=== PATIENT | male | born 1995 | race Caucasian/White ===

== ENCOUNTER 2019-11-14 11:49 | Observation (INO) ==
[2019-11-14] MEDS ORDERED: ONDANSETRON INJ 2 MG/ML 2 ML VIAL IV STA (12:05)
[2019-11-14] MEDS ORDERED: IOVERSOL 100ml IV PRN (12:14)
[2019-11-14] MEDS ORDERED: SODIUM CHLORIDE 0.9% 1000ML 1,000 ML IV SCH (12:15)
[2019-11-14] MEDS: fentaNYL citrate 100 MCG/2 ML VIAL IV PRN ×3 (12:29→16:41)
[2019-11-14 12:30] LABS: Basophils # (auto) 0.01 K/uL (0-0.2); Basophils % (auto) 0.1 %; Eosinophils # (auto) 0.08 K/uL (0-0.5); Eosinophils % (auto) 0.9 %; Hematocrit (blood only) 43.8 % (42-52); Hemoglobin 15.2 g/dL (14.0-18.0); Immature Granulocytes # (auto) 0.02 K/uL (0.00-0.02); Immature Granulocytes % (auto) 0.2 %; Lymphocytes # (auto) 1.14 K/uL (1.2-3.4); Lymphocytes % (auto) 12.7 %; Mean Corpuscular Hemoglobin 29.2 pg (25-34); Mean Corpuscular Hgb Conc 34.7 g/dL (32-36); Mean Corpuscular Volume 84.2 fL (80-100); Mean Platelet Volume 9.8 fL (7.4-10.4); Monocytes # (auto) 1.23 K/uL (0.11-0.59); Monocytes % (auto) 13.7 %; Neutrophils % (auto) 72.4 %; Platelet Count 171 K/uL (130-400); RDW Coefficient of Variation 13.2 % (11.5-14.5); White Blood Count 8.98 K/uL (4.8-10.8)
[2019-11-14 12:40] LABS: iSTAT Creatinine 0.9 mg/dl (0.6-1.3); iSTAT Hemoglobin 15.6 g/dl (14.0-18.0); iSTAT Ionized Calcium 1.24 mmol/l (1.12-1.32); iSTAT Potassium 4.4 mmol/L (3.3-5.0)
--- NOTE | 2019-11-14 12:41 | Emergency Department Note ---
Impression & Plan Acute appendicitis, Abdominal pain ED Provider Note NAME: CLUADIA Weiss [id number] MAURILIO AGE: 24 SEX: M : 1995 ARRIVES VIA: Walk-In INFORMANT: Patient, ED PROVIDER(S): Raffi Moreno DO CHIEF COMPLAINT: Abdominal pain HPI: The patient is a 24-year-old male who presented to the emergency department for an evaluation of abdominal pain. The patient has had abdominal pain which began last evening. He states he awoke at approximately 03 100 this morning with worsening of the pain. [facility] with Toradol. They felt his condition could be consistent with appendicitis so the patient was sent to the emergency department for further evaluation. The patient states he is had pain which is been ongoing. He states it does not radiate to his back or to his testicle. He does complain of nausea but has had no vomiting or diarrhea. He has had no fever. The patient states that he has not had similar symptoms in the past. The patient denies having any chest pain or difficulty breathing. ROS: See above HPI for pertinent positives & negatives. A total of 10 systems reviewed and were otherwise negative. PAST MEDICAL HISTORY: See Below PAST SURGICAL HISTORY: See Below FAMILY HISTORY: See Below SOCIAL HISTORY: See Below HOME MEDICATIONS: See Below ALLERGIES: See Below VITALS: See Below PHYSICAL EXAMINATION: GENERAL: Patient is awake alert in no acute distress patient is resting comfortably and showing no signs of anxiety EYES: The conjunctivae are clear. The pupils are round and reactive. EARS, NOSE, MOUTH AND THROAT: The nose is without any evidence of any deformity. Mucous membranes are moist. Tongue is midline. NECK: The neck is nontender and supple. RESPIRATORY: Normal respiratory effort is noted there is no evidence of wheezing rhonchi or rales CARDIOVASCULAR: Regular rate and rhythm noted there no murmurs rubs or gallops normal S1 normal S2. GASTROINTESTINAL: The abdomen is nondistended and soft. There is right lower quadrant tenderness to palpation but no guarding or rigidity. MUSCULOSKELETAL/EXTREMITIES: There is no evidence of gross deformity full range of motion is noted in the hips and shoulders. SKIN: There is no obvious evidence of any rash. There are no petechiae, pallor or cyanosis noted. NEUROLOGIC: Patient is awake alert and oriented x3. MEDICAL DECISION MAKING: The patient is a 24-year-old male who presented to the emergency department for an evaluation of right lower quadrant abdominal pain. The patient was seen at the community [facility] and given a dose of Toradol. The patient presented to the emergency department for further work-up of possible appendicitis. I discussed the patient's laboratory and radiographic studies with him. His CAT scan appears to be consistent with early appendicitis. The patient was treated with IV fluids and IV pain medication. He was feeling much better on subsequent reevaluation. The on-call general surgeon was consulted. The patient is pending evaluation by the general surgeon. Triage Nursing notes reviewed. Prior medical records reviewed Vital Signs: reviewed and remarkable for elevated blood pressure Differential diagnosis: Etiologies such as appendicitis, diverticulitis, obstruction, inflammatory bowel disease, renal colic, PUD, biliary pathology, pancreatitis, mesenteric ischemia, aortic pathology, infections, genitourinary, UTI, perforated viscus, as well as others were entertained. ER treatment provided: See below Diagnostics interpreted by me: ECG: none Cardiac Monitoring: An order was placed for continuous cardiac monitoring. The monitor shows a rate of 85 with sinus rhythm. Laboratory studies: As stated above and show below. Imaging studies: See below Consultation(s): 1430: On-call general surgery was consulted Past Med/Surg History Medical History (Updated 11/14/19 @ 14:32 by Raffi Moreno DO) History of varicocele Social History Feels Safe at Home: Yes Smoking Status: Never smoker Allergies Allergies Allergy/AdvReac Type Severity Reaction Status Date / Time No Known Allergies Allergy Unverified 11/14/19 12:37 Home Meds Home Medications Medication Instructions Recorded Confirmed No Known Home Medications 11/14/19 11/14/19 Results & Data (ED) Vital Signs Vital Signs - 24 hr 11/14/19 11:52 11/14/19 13:08 Temperature 37.2 C Temperature Source Oral Pulse Rate 84 Pulse Rate [Right Finger] 80 Pulse Rhythm [Right Finger] Regular Pulse Strength [Right Finger] Normal Respiratory Rate 18 20 Respiratory Effort / Characteristics Non-Labored Spontaneous Non-Labored Respiratory Depth Normal Normal Respiratory Pattern Regular Agonal Blood Pressure 126/72 Blood Pressure [Right Arm] 143/78 H Blood Pressure Mean 90 Blood Pressure Mean [Right Arm] 99 Blood Pressure Position Sitting Pulse Oximetry 97 99 Oxygen Delivery Method Room Air Nasal Cannula Sepsis Recent Fever Within 48 Hours No Sepsis New/Unexplained Change in Mental Status No Sepsis Action Taken by Nursing No Action Required Home Medications Current Medication List: was personally reviewed by me Laboratory Data Attestation: I reviewed the patient's lab results. Result diagrams: 11/14/19 12:22 11/14/19 12:22 Lab Results 11/14/19 11/14/19 11/14/19 Range/Units 12:22 12:22 12:27 WBC 8.98 (4.8-10.8) K/uL RBC 5.20 (4.7-6.1) M/uL Hgb 15.2 (14.0-18.0) g/dL POC Hgb 15.6 (14.0-18.0) g/dl Hct 43.8 (42-52) % POC Hct 46 (42-52) % MCV 84.2 (80-100) fL MCH 29.2 (25-34) pg MCHC 34.7 (32-36) g/dL RDW Std Deviation 40.0 (36.4-46.3) fL RDW Coeff of Deborah 13.2 (11.5-14.5) % Plt Count 171 (130-400) K/uL MPV 9.8 (7.4-10.4) fL Immature Gran % (Auto) 0.2 % Neut % (Auto) 72.4 % Lymph % (Auto) 12.7 % [place] % (Auto) 13.7 % Eos % (Auto) 0.9 % Baso % (Auto) 0.1 % Immature Gran # (Auto) 0.02 (0.00-0.02) K/uL Neut # (Auto) 6.50 (1.4-6.5) K/uL Lymph # (Auto) 1.14 L (1.2-3.4) K/uL [place] # (Auto) 1.23 H (0.11-0.59) K/uL Eos # (Auto) 0.08 (0-0.5) K/uL Baso # (Auto) 0.01 (0-0.2) K/uL POC Sodium 137 (135-144) mmol/L Sodium 136 (136-145) mmol/L POC Potassium 4.4 (3.3-5.0) mmol/L Potassium 4.4 (3.5-5.1) mmol/L POC Chloride 101 (101-112) mmol/L Chloride 104 (98-107) mmol/L Carbon Dioxide 30 (21-32) mmol/L POC Total CO2 26 (24-31) mmol/L Anion Gap 2.0 L (3-11) POC Anion Gap 14.0 L (16-25) mmol/L POC BUN 11 (7-18) mg/dl BUN 11 (7-18) mg/dl Creatinine 0.95 (0.6-1.4) mg/dl POC Creatinine 0.9 (0.6-1.3) mg/dl Est Cr Clr Drug Dosing 117.0 ml/min Est GFR ( Amer) 130.2 Est GFR (Non-Af Amer) 112.4 BUN/Creatinine Ratio 11.7 (10-20) Glucose 93 (70-99) mg/dl POC Glucose (other) 95 (70-99) mg/dl Calcium 9.1 (8.5-10.1) mg/dl POC Ioniz Calcium Mike 1.24 (1.12-1.32) mmol/l Total Bilirubin 1.1 H (0.2-1) mg/dl AST 17 (15-37) U/L ALT 43 (12-78) U/L Alkaline Phosphatase 74 (45-117) U/L Total Protein 7.4 (6.4-8.2) gm/dl Albumin 4.1 (3.4-5.0) gm/dl Globulin 3.3 (2.5-4.0) gm/dl Albumin/Globulin Ratio 1.2 (0.9-2) Lipase 58 L (73-393) U/L Administered Medications Fentanyl Citrate (Fentanyl Citrate) 50 mcg IV Q15M PRN PRN Reason: Pain Stop: 11/28/19 12:04 Last Admin: 11/14/19 14:26 Dose: 50 mcg Documented by: [id number] Admin: 11/14/19 12:29 Dose: 50 mcg Documented by: [id number] Ioversol (Optiray 320 100ml) 93 ml IV ONCE PRN PRN Reason: Interaction Checking Stop: 11/18/19 12:13 Last Admin: 11/14/19 12:14 Dose: 93 ml Documented by: [id number] Discontinued Medications Sodium Chloride (Nss 1000ml) 1,000 mls @ 999 mls/hr IV .Q1H1M VALERIE Stop: 11/14/19 13:15 Last Infusion: 11/14/19 13:52 Dose: 0 mls/hr Documented by: [id number] Admin: 11/14/19 12:29 Dose: 999 mls/hr Documented by: [id number] Ondansetron HCl (Zofran) 4 mg IV NOW STA Stop: 11/14/19 12:06 Last Admin: 11/14/19 12:29 Dose: 4 mg Documented by: [id number] Imaging Data Radiologist's Impression: CT SCAN OF THE ABDOMEN AND PELVIS WITH IV CONTRAST CLINICAL HISTORY: Right lower quadrant abdominal pain. COMPARISON STUDY: No priors. TECHNIQUE: Following the IV administration of 93 cc of Optiray 320, CT scan of the abdomen and pelvis is performed from the lung bases to the proximal femora. Images are reviewed in the axial, sagittal, and coronal planes. IV contrast was administered without complication. A dose lowering technique was utilized adhering to the principles of ALARA. CT DOSE: 332.68 mGy.cm FINDINGS: Lung bases: The heart is normal in size and without pericardial effusion. The lung bases are clear. Liver: The contrast-enhanced liver is normal in size, contour, and attenuation. There is no intrahepatic biliary ductal dilatation. The hepatic veins and portal veins are patent. Gallbladder: Unremarkable. Spleen: Normal in size and attenuation. Pancreas: Unremarkable. Adrenal glands: Unremarkable. Kidneys: The contrast enhanced kidneys are normal in size and without hydronephrosis. The kidneys enhance symmetrically. Abdominal vasculature: The abdominal aorta is normal in course and caliber. Bowel: There is no bowel obstruction. Moderate fecal retention is noted in the colon. The appendix is mildly distended and fluid-filled measuring up to 10 mm diameter as seen on image #313. Infiltration is identified around the base of the appendix, and findings are concerning for mild acute appendicitis. Peritoneum: There is no intraperitoneal free air or abdominal ascites. There is a fat-containing umbilical hernia. Lymphadenopathy: None. Pelvic viscera: The bladder, prostate, and seminal vesicles are normal as visualized. Skeletal structures: No lytic or blastic lesions are seen. IMPRESSION: 1. Findings are suspicious for mild acute appendicitis. Surgical consultation is advised. 2. There is no evidence of abscess or perforation. 3. Moderate constipation. ACT 112: Negative or not required by law. Electronically signed by: Anil Summers M.D. 11/14/2019 1:16 PM Dictated: 11/14/19 1311 Transcribed: 11/14/19 1311 Blood Pressure Blood Pressure Findings: Elevated blood pressure Blood Pressure Disposition: elevated BP felt to be situational Discharge Plan Visit Data Chief Complaint: Abdominal Pain Stated Complaint: ABD PAIN ED Provider: Raffi Moreno Discharge Problem: Acute appendicitis, Abdominal pain Patient Disposition: Being Evaluated by Surgeon Condition: Good Forms Stand Alone Forms: [employer] Prescriptions Prescriptions: No Action No Known Home Medications RF: 0 Referrals Referrals: Benton OWENS [Primary Care Provider] -
[2019-11-14 12:48] LABS: Albumin Level 4.1 gm/dl (3.4-5.0); BUN Creatinine Ratio 11.7 (10-20); Calcium 9.1 mg/dl (8.5-10.1); Est GFR (African American) 130.2; Est GFR (Non-African American) 112.4; Potassium 4.4 mmol/L (3.5-5.1)
[2019-11-14 12:50] LABS: Albumin Globulin Ratio 1.2 (0.9-2); Bilirubin,Total 1.1 mg/dl (0.2-1); Globulin 3.3 gm/dl (2.5-4.0); Total Protein 7.4 gm/dl (6.4-8.2)
--- NOTE | 2019-11-14 13:18 | CT Scan Report ---
CT SCAN OF THE ABDOMEN AND PELVIS WITH IV CONTRAST CLINICAL HISTORY: Right lower quadrant abdominal pain. COMPARISON STUDY: No priors. TECHNIQUE: Following the IV administration of 93 cc of Optiray 320, CT scan of the abdomen and pelvi s is performed from the lung bases to the proximal femora. Images are reviewed in the axial, sagittal , and coronal planes. IV contrast was administered without complication. A dose lowering technique wa s utilized adhering to the principles of ALARA. CT DOSE: 332.68 mGy.cm FINDINGS: Lung bases: The heart is normal in size and without pericardial effusion. The lung bases are clear. Liver: The contrast-enhanced liver is normal in size, contour, and attenuation. There is no intrahepa tic biliary ductal dilatation. The hepatic veins and portal veins are patent. Gallbladder: Unremarkable. Spleen: Normal in size and attenuation. Pancreas: Unremarkable. Adrenal glands: Unremarkable. Kidneys: The contrast enhanced kidneys are normal in size and without hydronephrosis. The kidneys enh ance symmetrically. Abdominal vasculature: The abdominal aorta is normal in course and caliber. Bowel: There is no bowel obstruction. Moderate fecal retention is noted in the colon. The appendix is mildly distended and fluid-filled measuring up to 10 mm diameter as seen on image #313. Infiltration is identified around the base of the appendix, and findings are concerning for mild acute appendicit is. Peritoneum: There is no intraperitoneal free air or abdominal ascites. There is a fat-containing umbi lical hernia. Lymphadenopathy: None. Pelvic viscera: The bladder, prostate, and seminal vesicles are normal as visualized. Skeletal structures: No lytic or blastic lesions are seen. IMPRESSION: 1. Findings are suspicious for mild acute appendicitis. Surgical consultation is advised. 2. There is no evidence of abscess or perforation. 3. Moderate constipation. ACT 112: Negative or not required by law. Electronically signed by: Anil Summers M.D. 11/14/2019 1:16 PM
[2019-11-14 14:43] LABS: Appearance Urine Clear (Clear); Bilirubin Urine Negative (Negative); Blood Urine Negative (Negative); Color Urine Yellow; Glucose Urine UA Negative (Negative); Ketones Urine Negative (Negative); Leukocyte Esterase Urine Negative (Negative); Nitrite Urine Negative (Negative); Protein Urine Negative (Negative); Specific Gravity Urine > 1.045 (1.000-1.030); Urobilinogen Urine Negative (Negative)
--- NOTE | 2019-11-14 15:53 | Surgery Consultation ---
Date of Consultation November 14, 2019 Assessment & Plan (1) Acute appendicitis: pt is a 24 year-old male who presents to ER with acute abdominal pain, IMP: acute appendicitis, Plan, I recommend to do laparoscopic appendectomy, possible open D/W benefits, risks and alternatives of the surgery, the risks - infection, bleeding, abscess, injury bowel, pt understood, he agrees with the surgery, I answered all questions, pre-op antibiotic History of Present Illness History of Present Illness CHIEF COMPLAINT: Abdominal pain HPI: The patient is a 24-year-old male who presented to the emergency department for an evaluation of abdominal pain. The patient has had abdominal pain which began last evening. He states he awoke at approximately 03 100 this morning with worsening of the pain. He was seen at the [facility] and treated with Toradol. They felt his condition could be consistent with appendicitis so the patient was sent to the emergency department for further evaluation. The patient states he is had pain which is been ongoing. He states it does not radiate to his back or to his testicle. He does complain of nausea but has had no vomiting or diarrhea. He has had no fever. The patient states that he has not had similar symptoms in the past. The patient denies having any chest pain or difficulty breathing. I ( Yamila Granados MD ) got a call for consult acute appendicitis, I reviewed pt's H/P, Labs, and CT scan with pt, ROS: See above HPI for pertinent positives & negatives. A total of 10 systems reviewed and were otherwise negative. PAST MEDICAL HISTORY: See Below PAST SURGICAL HISTORY: See Below FAMILY HISTORY: See Below SOCIAL HISTORY: See Below HOME MEDICATIONS: See Below ALLERGIES: See Below Allergies Allergy/AdvReac Type Severity Reaction Status Date / Time No Known Allergies Allergy Unverified 11/14/19 12:37 Home Medications Home Medications Medication Instructions Recorded Confirmed Type No Known Home Medications 11/14/19 11/14/19 History Patient History Medical History (Updated 11/14/19 @ 14:32 by Raffi Moreno DO) History of varicocele Social History Feels Safe at Home: Yes Smoking Status: Never smoker Review of Systems Constitutional: as per Subjective / HPI Eyes: as per Subjective / HPI Ear, Nose, Mouth, Throat: as per Subjective / HPI Respiratory: as per Subjective / HPI Cardiovascular: as per Subjective / HPI Gastrointestinal: as per Subjective / HPI Genitourinary: + as per Subjective / HPI Musculoskeletal: as per Subjective / HPI Integumentary: as per Subjective / HPI Neurologic: as per Subjective / HPI Psychiatric: as per Subjective / HPI Endocrine: as per Subjective / HPI Hematologic / Lymphatic: as per Subjective / HPI Allergy / Immunological: as per Subjective / HPI Physical Exam Constitutional: WD/WN, vitals as above well developed and well nourished Eyes: PERRL, conjunctivae normal, anicteric sclerae ENMT: external ear and nose normal, oropharynx normal Neck: trachea midline, no thyromegaly Respiratory: normal respiratory effort, lungs clear to auscultation Cardiovascular: RRR, no murmur, no edema Rate/Rhythm: regular rate and regular rhythm Gastrointestinal (Abdomen): Percussion/Palpation: + abdomen tender and abdomen soft tendeness T RLQ, no rebound pain, BS + Musculoskeletal: no cyanosis or clubbing, extremities motor strength 5/5 Skin: no rashes, warm and dry Neurologic: patellar DTR's 2+ bilat, sensation intact Psychiatric: Orientation: alert and oriented x 3 Results & Data Vital Signs (Past 12 Hours) Vital Signs Temp Pulse Pulse Resp BP BP Pulse Ox 11/14/19 14:32 79 20 139/80 95 11/14/19 13:08 80 20 143/78 H 99 11/14/19 11:52 37.2 C 84 18 126/72 97 Laboratory Results Abnormal lab results 11/14/19 11/14/19 11/14/19 Range/Units 12:22 12:22 12:27 Lymph # (Auto) 1.14 L (1.2-3.4) K/uL [place] # (Auto) 1.23 H (0.11-0.59) K/uL Anion Gap 2.0 L (3-11) POC Anion Gap 14.0 L (16-25) mmol/L Total Bilirubin 1.1 H (0.2-1) mg/dl Lipase 58 L (73-393) U/L Ur Specific Onset (1.000-1.030) 11/14/19 Range/Units 14:09 Lymph # (Auto) (1.2-3.4) K/uL [place] # (Auto) (0.11-0.59) K/uL Anion Gap (3-11) POC Anion Gap (16-25) mmol/L Total Bilirubin (0.2-1) mg/dl Lipase (73-393) U/L Ur Specific Onset > 1.045 H (1.000-1.030) Diagnostic Findings CT SCAN OF THE ABDOMEN AND PELVIS WITH IV CONTRAST CLINICAL HISTORY: Right lower quadrant abdominal pain. COMPARISON STUDY: No priors. TECHNIQUE: Following the IV administration of 93 cc of Optiray 320, CT scan of the abdomen and pelvis is performed from the lung bases to the proximal femora. Images are reviewed in the axial, sagittal, and coronal planes. IV contrast was administered without complication. A dose lowering technique was utilized adhering to the principles of ALARA. CT DOSE: 332.68 mGy.cm FINDINGS: Lung bases: The heart is normal in size and without pericardial effusion. The lung bases are clear. Liver: The contrast-enhanced liver is normal in size, contour, and attenuation. There is no intrahepatic biliary ductal dilatation. The hepatic veins and portal veins are patent. Gallbladder: Unremarkable. Spleen: Normal in size and attenuation. Pancreas: Unremarkable. Adrenal glands: Unremarkable. Kidneys: The contrast enhanced kidneys are normal in size and without hydronephrosis. The kidneys enhance symmetrically. Abdominal vasculature: The abdominal aorta is normal in course and caliber. Bowel: There is no bowel obstruction. Moderate fecal retention is noted in the colon. The appendix is mildly distended and fluid-filled measuring up to 10 mm diameter as seen on image #313. Infiltration is identified around the base of the appendix, and findings are concerning for mild acute appendicitis. Peritoneum: There is no intraperitoneal free air or abdominal ascites. There is a fat-containing umbilical hernia. Lymphadenopathy: None. Pelvic viscera: The bladder, prostate, and seminal vesicles are normal as visualized. Skeletal structures: No lytic or blastic lesions are seen. IMPRESSION: 1. Findings are suspicious for mild acute appendicitis. Surgical consultation is advised. 2. There is no evidence of abscess or perforation. 3. Moderate constipation. (1) Acute appendicitis Acute appendicitis type: with localized peritonitis Appendicitis abscess presence: without abscess Appendicitis gangrene presence: unspecified whether gangrene present Appendicitis perforation presence: without perforation Qualified Code(s): K35.30 - Acute appendicitis with localized peritonitis, without perforation or gangrene
[2019-11-14] MEDS ORDERED: cefOXitin 2,000 MG/60 ML BAG IV STA (15:56)
--- NOTE | 2019-11-14 15:56 | History & Physical Bridge Note ---
Date of Service November 14, 2019 History & Physical Bridge Note I have examined the patient, reviewed the History & Physical and in the interval since the performance of the History & Physical I have noted the following changes of clinical significance: no changes noted
[2019-11-14] MEDS ORDERED: BACITRACIN OINT 15 GM TUBE ONE (17:56)
[2019-11-14] MEDS ORDERED: LIDOCAINE HCL 1% 20 ML VIAL ONE (17:57)
[2019-11-14] MEDS ORDERED: BUPIVACAINE 0.5 % 5 MG/1 ML MPF 30ML VIAL ONE (17:57)
[2019-11-14] MEDS ORDERED: fentaNYL citrate 100 MCG/2 ML VIAL ONE ×2 (17:58→18:56)
[2019-11-14] MEDS ORDERED: MIDAZOLAM HCL 1 MG/ML 2ML VIAL ONE (17:58)
[2019-11-14] MEDS ORDERED: ROCURONIUM BROMIDE 10 MG/ML 5 ML VIAL ONE ×2 (18:02→18:56)
[2019-11-14] MEDS ORDERED: ATROPINE SULFATE 0.1 MG/ML 10ML SYR IV PRN (18:13)
[2019-11-14] MEDS ORDERED: PROMETHAZINE HCL 12.5 MG in SODIUM CHLORIDE 0.9% 50 ML IV PRN (18:13)
[2019-11-14] MEDS ORDERED: ONDANSETRON INJ 2 MG/ML 2 ML VIAL IV PRN ×2 (18:13→19:22)
[2019-11-14] MEDS ORDERED: KETOROLAC 30 MG/ML VIAL IV PRN (18:13)
--- NOTE | 2019-11-14 18:13 | Anesthesiology Consultation ---
Date of Service November 14, 2019 Assessment & Plan (1) Encounter for pre-operative examination: Chart Review Chart Review: Acceptable Risk for Surgery (Prepping COVID testing pending) History Surgery Operation Date: 11/14/19 17:00 Proposed Procedures p Laparoscopic Appendectomy - Yamila Granados MD Height/Weight Height: 5 ft 8 in Weight: 81.5 kg Allergies Allergy/AdvReac Type Severity Reaction Status Date / Time No Known Allergies Allergy Unverified 11/14/19 12:37 Medications Home Medications Medication Instructions Recorded Confirmed Last Taken No Known Home Medications 11/14/19 11/14/19 Unknown Active Medications Generic Name Dose Route Start Last Admin Trade Name Freq PRN Reason Stop Dose Admin Fentanyl Citrate 50 mcg 11/14/19 12:05 11/14/19 16:41 Fentanyl Citrate IV 11/28/19 12:04 50 mcg Q15M PRN Administration Pain Ioversol 93 ml 11/14/19 12:14 11/14/19 12:14 Optiray 320 100ml IV 11/18/19 12:13 93 ml ONCE PRN Administration Interaction Checking NPO Date Last Intake of Fluids: 11/14/19 Time Last Intake of Fluids: 07:00 Date Last Intake of Solids: 11/13/19 Time Last Intake of Solids: 21:00 Past Medical History Medical History History of varicocele Social History Smoking Status: Never smoker Physical Exam Vital Signs Last Vital Signs Temp 37.2 C 11/14/19 11:52 Pulse 82 11/14/19 16:41 Resp 15 11/14/19 16:41 BP 130/58 L 11/14/19 16:41 Pulse Ox 96 11/14/19 16:41 Testing Laboratory Results 11/14/19 12:22 11/14/19 12:22 Urine Color Yellow 11/14/19 14:09 Urine Appearance Clear (Clear) 11/14/19 14:09 Urine pH 7.0 (4.5-7.5) 11/14/19 14:09 Ur Specific [place] > 1.045 (1.000-1.030) H 11/14/19 14:09 Urine Protein Negative (Negative) 11/14/19 14:09 Urine Glucose (UA) Negative (Negative) 11/14/19 14:09 Urine Ketones Negative (Negative) 11/14/19 14:09 Urine Nitrite Negative (Negative) 11/14/19 14:09 Ur Leukocyte Esterase Negative (Negative) 11/14/19 14:09 11/14/19 12:27 POC Glucose (other) 95
[2019-11-14] MEDS ORDERED: PROPOFOL IV EMULSION 10 MG/ML 20 ML VIAL IV ONE (18:56)
[2019-11-14] MEDS ORDERED: LIDOCAINE HCL 2% 2 ML VIAL/AMP(20MG/ML) INFIL ONE (18:56)
[2019-11-14] MEDS ORDERED: NEOSTIGMINE METHYLSULFATE 5 MG/5 ML SYR ONE (19:14)
[2019-11-14] MEDS ORDERED: GLYCOPYRROLATE 0.2 MG/ML VIAL ONE (19:14)
[2019-11-14] MEDS ORDERED: ONDANSETRON INJ 2 MG/ML 2 ML VIAL ONE (19:14)
--- NOTE | 2019-11-14 19:20 | Post Operative Brief Note ---
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
[2019-11-14] MEDS ORDERED: HYDROmorphone INJ 1 MG/ML SYRINGE ONE (19:48)
[2019-11-14] MEDS ORDERED: KETOROLAC 30 MG/ML VIAL ONE (19:48)
[2019-11-14] MEDS: HYDROmorphone INJ 1 MG/ML SYRINGE IV PRN ×5 (19:50→22:01)
[2019-11-14] MEDS: LACTATED RINGER'S 1,000 ML IV SCH (21:18)
--- NOTE | 2019-11-14 23:14 | Operative Report (OR) ---
DATE OF OPERATION: 11/14/2019 PREOPERATIVE DIAGNOSIS: Acute appendicitis. POSTOPERATIVE DIAGNOSIS: Acute appendicitis. PROCEDURE: Laparoscopic appendectomy. SURGEON: Yamila Granados MD. ANESTHESIA: General. ESTIMATED BLOOD LOSS: About 5 mL. FINDINGS: Acute appendicitis. COMPLICATIONS: None. INDICATIONS FOR THE PROCEDURE: This is a 24-year-old gentleman who presented to ED with acute abdominal pain and the patient had a CT scan diagnosis of acute appendicitis. I recommended to do laparoscopic appendectomy. I did possible open. I did talk to the patient about the benefits, risks, and alternate procedures. I indicated the risks may include but not limited such as bleeding, infection, abscess, injury to the bowel; patient understands. He signed informed consent and I answered all questions. DETAILS OF PROCEDURE: We brought in the patient to the OR and put the patient in the supine position. The patient received SCDs on bilateral legs to prevent DVT. Also, the patient received 2 g cefoxitin IV for prophylactic antibiotic. The patient received general anesthesia without difficulties. Abdomen was prepped and draped in routine sterile fashion. After timeout, I injected the local anesthesia just above the umbilicus. Then I made a small incision just above umbilicus, opened fascia and opened peritoneum under direct vision, put a Krista trocar in, connected to CO2 to create pneumoperitoneum. Flow rate at 6 liter per minute, pressure not more than 14 mmHg. Once we got a nice pneumoperitoneum, we put a camera in, looked around the abdomen, showed normal finding on the small bowel and large bowel. However, appendix was enlarged, inflammation, confirmed diagnosis of acute appendicitis. Then we put another two 5 mm trocars on the left lower quadrant where we mobilized the appendix and used the harmonic to take down appendiceal, rechecked, no active bleeding. Then I used a 45 mm Endo-ANGIE staple for transection on the base of the appendix, rechecked the staple line, intact. No leak, no active bleeding. Then we removed the appendix through the catch bag. Then we reinserted Krista trocar in, connected to CO2 to create pneumoperitoneum. Again looked around the abdomen, no active bleeding, no leak. Then we removed all trocar under direct vision. No active bleeding from the trocar sites. Pneumoperitoneum was released. Then I closed the umbilical incision, fascial layer by using 0 Vicryl [id number] x2, closed subcutaneous layer by using 2-0 Vicryl interruptedly, closed skin by using 4-0 Vicryl continuous running, closed another two 5 mm trocar sites skin only by using 4-0 Vicryl and we put the dressing on. The patient tolerated the procedure well. All instrument, needle and sponge count were correct x2 at the end of the case. The specimen sent to pathology. The patient transferred to recovery room in stable condition. I attest to the content of the Intraoperative Record and any orders documented therein. Any exception s are noted below.
[2019-11-15] MEDS: HYDROmorphone INJ 1 MG/ML SYRINGE IV PRN ×2 (02:16→06:25)
[2019-11-15] MEDS: LACTATED RINGER'S 1,000 ML IV SCH (05:47)
[2019-11-15 07:13] LABS: Basophils # (auto) 0.01 K/uL (0-0.2); Basophils % (auto) 0.2 %; Eosinophils # (auto) 0.07 K/uL (0-0.5); Eosinophils % (auto) 1.1 %; Hemoglobin 13.4 g/dL (14.0-18.0); Lymphocytes # (auto) 1.56 K/uL (1.2-3.4); Lymphocytes % (auto) 24.6 %; Mean Corpuscular Hemoglobin 29.7 pg (25-34); Mean Corpuscular Hgb Conc 34.4 g/dL (32-36); Mean Corpuscular Volume 86.5 fL (80-100); Mean Platelet Volume 9.7 fL (7.4-10.4); Monocytes # (auto) 1.02 K/uL (0.11-0.59); Monocytes % (auto) 16.1 %; Neutrophils # (auto) 3.68 K/uL (1.4-6.5); Platelet Count 154 K/uL (130-400); RDW Coefficient of Variation 13.4 % (11.5-14.5); RDW Standard Deviation 42.8 fL (36.4-46.3); Red Blood Count 4.51 M/uL (4.7-6.1); White Blood Count 6.34 K/uL (4.8-10.8)
[2019-11-15] MEDS: OXYCODONE/ACETAMINOPHEN 5mg/325mg TAB PO PRN ×2 (08:12→12:39)
--- NOTE | 2019-11-15 17:37 | Discharge Summary (DS) ---
ADMITTING DIAGNOSIS: Acute appendicitis. DISCHARGE DIAGNOSIS: Acute appendicitis. OPERATION: Laparoscopic appendectomy. SURGEON: Yamila Granados MD. DETAILS OF DISCHARGE SUMMARY: This is a 24-year-old gentleman who presented to ED with acute abdominal pain. The patient had a CT scan diagnosis of acute appendicitis. We took the patient to the OR. We did a laparoscopic appendectomy. The patient tolerated the procedure well on 11/14/2019 and later on patient transferred to regular floor. The patient is doing fine. He tolerated a diet, no nausea, no vomiting, good control of pain. PHYSICAL EXAMINATION: VITAL SIGNS: Temperature is 36.7, heart rate is 64, respiratory rate 16, blood pressure 119/68, O2 saturation 97% on room air. GENERAL: The patient is alert, awake, oriented x3. HEENT: With normal limitation. NEUROLOGIC: Intact. NECK: No JVD. CHEST: Bilateral lung sounds clear. HEART: Normal S1, S2. No murmurs. ABDOMEN: Soft, nondistended. Mild tenderness on the incision site. All incisions intact. No drainage, no redness. EXTREMITIES: No edema. The patient's lab shows a WBC 6.3, hemoglobin 13.4, otherwise all normal for chemical labs and we decided to send the patient back to the correct facility and we gave the patient postop care instructions and the patient understands. I will follow up the patient in 2 weeks. The patient agreed.
== END 2019-11-15 17:02 ==
LOC: ED 11:49 → OR 18:16 → 3N 18:16
DX: K35.30 Acute appendicitis with localized peritonitis, without perforation or gangrene